=== PATIENT | female | born 1965 | race Caucasian/White ===

== ENCOUNTER 2023-10-23 22:42 | Emergency (ER) | payer MEDICARE, OTHER ==
[2023-10-24] MEDS ORDERED: KETOROLAC 15 MG/ML 1 ML VIAL IM STA (05:34)
--- NOTE | 2023-10-24 05:36 | ED ---
Extremity Problem HPI - General Chief complaint: Skin/Abscess/Foreign Body Stated complaint: Abscess on back Time Seen by Provider: 10/24/23 05:00 Source: patient, EMS, RN notes reviewed, old records reviewed Mode of arrival: EMS Limitations: altered mental status, physical limitation - History of Present Illness Initial comments: This is a 50-year-old female to the emergency department for evaluation of hip pain right-sided hip pain severe, caregiver noted some significant swelling to the right with redness surrounding. Patient has not been wanting to walk for the last few days which is something that she occasionally does. No significant recent trauma. They have noticed that the patient just hasn't wanted to get up and do her normal activities of daily living there were concerned that there may be infection in that hip. Upon looking at the hip. The emergency department caregiver states the swelling is gone significantly down and the redness is almost diminished MD Complaint: extremity pain, joint pain Location: left History of Same: Yes -: Yes arthralgia Radiation: proximal Severity scale (1-10): 10 Quality: stabbing Consistency: constant Improves with: nothing Worsens with: nothing Associated Symptoms: denies other symptoms - Related Data Allergies Allergy/AdvReac Type Severity Reaction Status Date / Time No Known Allergies Allergy Verified 10/23/23 22:57 Review of Systems ROS Statement: Those systems with pertinent positive or pertinent negative responses have been documented in the HPI. ROS Other: All systems not noted in ROS Statement are negative. Past Medical History Past Medical History: Hyperlipidemia, Hypertension History of Any Multi-Drug Resistant Organisms: None Reported Past Surgical History: Unable to Obtain Past Psychological History: Unable to Obtain Smoking Status: Never smoker Past Alcohol Use History: None Reported Past Drug Use History: None Reported General Exam Limitations: no limitations General appearance: alert, in no apparent distress Head exam: Present: atraumatic, normocephalic, normal inspection Eye exam: Present: normal appearance, PERRL, EOMI. Absent: scleral icterus, conjunctival injection, periorbital swelling ENT exam: Present: normal exam, mucous membranes moist Neck exam: Present: normal inspection. Absent: tenderness, meningismus, lymphadenopathy Respiratory exam: Present: normal lung sounds bilaterally. Absent: respiratory distress, wheezes, rales, rhonchi, stridor Cardiovascular Exam: Present: regular rate, normal rhythm, normal heart sounds. Absent: systolic murmur, diastolic murmur, rubs, gallop, clicks GI/Abdominal exam: Present: soft, normal bowel sounds. Absent: distended, tenderness, guarding, rebound, rigid Extremities exam: Present: normal inspection, full ROM, normal capillary refill. Absent: tenderness, pedal edema, joint swelling, calf tenderness Back exam: Present: normal inspection Neurological exam: Present: alert, oriented X3, CN II-XII intact Psychiatric exam: Present: normal affect, normal mood Skin exam: Present: warm, dry, intact, normal color. Absent: rash Course Vital Signs 10/23/23 10/24/23 10/24/23 22:48 06:00 07:00 Temperature 98.7 F Pulse Rate 60 98 93 Respiratory 18 14 16 Rate Blood Pressure 94/67 95/81 108/63 O2 Sat by Pulse 97 98 98 Oximetry 10/24/23 08:00 Temperature 97.8 F Pulse Rate 72 Respiratory 16 Rate Blood Pressure 104/67 O2 Sat by Pulse 96 Oximetry - Reevaluation(s) Reevaluation #1: 10/24/23 05:35 Medical records reviewed Reevaluation #2: 10/24/23 Patient is not providing any history Reevaluation #3: 10/24/23 caregiver informed of results and questions answered Reevaluation #4: 10/24/23 05:35 Was pt. sent in by a medical professional or institution ([facility], [facility], urgent care, hospital, or correction...) When possible be specific @ -no Did you speak to anyone other than the patient for history (EMS, parent, family, police, friend...)? What history was obtained from this source @ -no Did you review nursing and triage notes (agree or disagree)? Why? @ -agree Are old charts reviewed (outside hosp., previous admission, EMS record, old EKG, old radiological studies, urgent care reports/EKG's, correction records)? Report findings @ -yes Differential Diagnosis (chest pain, altered mental status, abdominal pain women, abdominal pain men, vaginal bleeding, weakness, fever, dyspnea, syncope, headache, dizziness, GI bleed, back pain, seizure, CVA, palpatations, mental health, musculoskeletal)? @ -prior EKG interpreted by me (3pts min.). @ -no X-rays interpreted by me (1pt min.). @ -yes negative for acute disease CT interpreted by me (1pt min.). @ -no U/S interpreted by me (1pt. min.). @ -no What testing was considered but not performed or refused? (CT, X-rays, U/S, labs)? Why? @ -none What meds were considered but not given or refused? Why? @ -none Did you discuss the management of the patient with other professionals (professionals i.e. DrBebeto, PA, [employer] [employer], lab, RT, psych nurse, licensed social worker, credit professional, teacher, industrial relations officer, test case developer)? Give summary @ -no Was smoking cessation discussed for >3mins.? @ -no Was critical care preformed (if so, how long)? @ -no Were there social determinants of health that impacted care today? How? (Homelessness, low income, unemployed, alcoholism, drug addiction, transportation, low edu. Level, literacy, decrease access to med. care, residential, rehab)? @ -none Was there de-escalation of care discussed even if they declined (Discuss DNR or withdrawal of care, Hospice)? DNR status @ -no What co-morbidities impacted this encounter? (DM, HTN, Smoking, COPD, CAD, Can cer, CVA, ARF, Chemo, Hep., AIDS, mental health diagnosis, sleep apnea, morbid obesity)? @ -none Was patient admitted / discharged? Hospital course, mention meds given and route, prescriptions, significant lab abnormalities, going to OR and other pertinent info. @ - 58 female to the emergency department for evaluation of right hip pain, no significant medical injury noted here in the ER, patient has no fevers no significant pain with range of motion and can be discharged home Discharge Undiagnosed new problem with uncertain prognosis? @ -no Drug Therapy requiring intensive monitoring for toxicity (Heparin, Nitro, Insulin, Cardizem)? @ -no Were any procedures done? @ -no Diagnosis/symptom? @ -Right hip pain, bursitis Acute, or Chronic, or Acute on Chronic? @ -Acute Uncomplicated (without systemic symptoms) or Complicated (systemic symptoms)? @ -Complicated Side effects of treatment? @ -no Exacerbation, Progression, or Severe Exacerbation? @ -exacerbation Poses a threat to life or bodily function? How? (Chest pain, [place], [place], pneumonia, PE, COPD, DKA, ARF, appy, cholecystitis, CVA, Diverticulitis, Homicidal, Suicidal, threat to staff... and all critical care pts) @ -no Medical Decision Making - Medical Decision Making 58 female to the emergency department for evaluation of right hip pain, no significant medical injury noted here in the ER, patient has no fevers no significant pain with range of motion and can be discharged home - Radiology Data Radiology results: report reviewed (X-ray right hip negative for traumatic injury), image reviewed Disposition Clinical Impression: Trochanteric bursitis, right hip Disposition: HOME SELF-CARE Condition: Good Instructions (If sedation given, give patient instructions): Hip Bursitis (ED) Is patient prescribed a controlled substance at d/c from ED?: No Referrals: Ketan Norton DO [Primary Care Provider] - 1-2 days
--- NOTE | 2023-10-24 07:20 | XR ---
EXAMINATION TYPE: XR Hip RT and AP Pelvis DATE OF EXAM: 10/24/2023 5:47 AM CLINICAL INDICATION:Female, 58 years old with history of pain; [facility] COMPARISON: None. TECHNIQUE: XR Hip RT and AP Pelvis; hip was examined in the frontal and lateral projections and a AP pelvis. FINDINGS: No evidence for acute process, joint dislocation or significant soft tissue swelling. Osteo phyte formation of the superior acetabulum of the hips. Large amount stool is seen in the rectum. IMPRESSION: 1. No evidence for acute process. 2. Mild hip osteoarthrosis bilaterally. 3. Large amount stool in the rectum.
[2023-10-24 07:40] VITALS: RESP 16
[2023-10-24 08:05] VITALS: BP 104/67; PULSE 72; TEMP 97.8
== END 2023-10-24 08:03 | disposition home or self-care (01) ==
LOC: EC 22:42 → SUPCPDRO 22:42 → EC 10-24 08:03
DX: M70.61 Trochanteric bursitis, right hip (principal); I10 Essential (primary) hypertension
CPT/HCPCS: 73502; 99283

== ENCOUNTER 2025-01-30 22:43 | Emergency (ER) | payer MEDICARE, OTHER ==
[2025-01-30 23:43] VITALS: TEMP 97.9
--- NOTE | 2025-01-31 00:01 | ED ---
Fall HPI - General Chief Complaint: Fall Stated Complaint: Fall, Head Injury Time Seen by Provider: 01/30/25 23:45 Source: patient, EMS, Caregiver Mode of arrival: EMS - History of Present Illness Initial Comments: 60-year-old female with cognitive delay presenting to the emergency department via EMS from alf for complaint of a fall. Majority of history was provided from caregiver at bedside due to patient's cognitive delay. Is reported that patient was in bed where she fell out of bed was found by a caregiver. Patient was unattended for less than 10 minutes total. There was no reported loss Of the Fall However Was Concerned That There Is a Bleed from the Back of the Patient's Head. Currently Patient States That She Is Feeling Well and Denies Headache, Blurry Double Vision, Dizziness, Lightheadedness, Chest Pain, Difficulty Breathing. Patient Denies Losing Consciousness at the Time of the Fall. States That She Rolled Out Of Bed. - Related Data Allergies Allergy/AdvReac Type Severity Reaction Status Date / Time No Known Allergies Allergy Verified 01/30/25 23:43 Review of Systems ROS Statement: Those systems with pertinent positive or pertinent negative responses have been documented in the HPI. ROS Other: All systems not noted in ROS Statement are negative. Past Medical History Past Medical History: Hyperlipidemia, Hypertension History of Any Multi-Drug Resistant Organisms: None Reported Past Surgical History: Unable to Obtain Past Psychological History: Unable to Obtain Smoking Status: Never smoker Past Alcohol Use History: None Reported Past Drug Use History: None Reported General Exam General appearance: alert, in no apparent distress Head exam: Present: other (right posterior scalp skin abrasion, 3 mm, no active bleeding) Neck exam: Present: normal inspection. Absent: tenderness, meningismus, lymphadenopathy Respiratory exam: Present: normal lung sounds bilaterally. Absent: respiratory distress, wheezes, rales, rhonchi, stridor Cardiovascular Exam: Present: regular rate, normal rhythm, normal heart sounds. Absent: systolic murmur, diastolic murmur, rubs, gallop, clicks GI/Abdominal exam: Present: soft, normal bowel sounds. Absent: distended, tenderness, guarding, rebound, rigid Extremities exam: Present: normal inspection, full ROM, normal capillary refill. Absent: tenderness, pedal edema, joint swelling, calf tenderness Neurological exam: Present: alert, oriented X3, CN II-XII intact Course Vital Signs 01/30/25 01/31/25 01/31/25 23:29 01:54 01:57 Temperature 97.9 F 97.9 F Pulse Rate 82 86 81 Respiratory 20 16 Rate Blood Pressure 107/74 90/65 O2 Sat by Pulse 97 95 95 Oximetry Medical Decision Making - Medical Decision Making Was pt. sent in by a medical professional or institution (, PA, [facility], urgent care, hospital, or residential...) When possible be specific @ -No Did you speak to anyone other than the patient for history (EMS, parent, family, police, friend...)? What history was obtained from this source @ -Spoke to caregiver at bedside states the patient was unattended for less than 15 minutes after she had a fall out of bed. Did you review nursing and triage notes (agree or disagree)? Why? @ -I reviewed and agree with nursing and triage notes Were old charts reviewed (outside hosp., previous admission, EMS record, old EKG, old radiological studies, urgent care reports/EKG's, residential records)? Report findings @ -No old charts were reviewed Differential Diagnosis (chest pain, altered mental status, abdominal pain women, abdominal pain men, vaginal bleeding, weakness, fever, dyspnea, syncope, headache, dizziness, GI bleed, back pain, seizure, CVA, palpatations, mental health, musculoskeletal)? @ -Skin avulsion, laceration, intracranial hemorrhage, cervical spine fracture, this is not all inclusive list EKG interpreted by me (3pts min.). @ -None X-rays interpreted by me (1pt min.). @ -None done CT interpreted by me (1pt min.). @ -CT of the brain and C-spine without contrast no acute intracranial or cervical spine process U/S interpreted by me (1pt. min.). @ -None done What testing was considered but not performed or refused? (CT, X-rays, U/S, labs)? Why? @ -None What meds were considered but not given or refused? Why? @ -None Did you discuss the management of the patient with other professionals (professionals i.e. , PA, TUBE PUSHER, lab, RT, psych nurse, medical social worker, online marketing director, teacher, business development officer, block and case maker)? Give summary @ -No Was smoking cessation discussed for >3mins.? @ -No Was critical care preformed (if so, how long)? @ -No Were there social determinants of health that impacted care today? How? (Homelessness, low income, unemployed, alcoholism, drug addiction, transportat ion, low edu. Level, literacy, decrease access to med. care, [facility], rehab)? @ -No Was there de-escalation of care discussed even if they declined (Discuss DNR or withdrawal of care, Hospice)? DNR status @ -No What co-morbidities impacted this encounter? (DM, HTN, Smoking, COPD, CAD, Cancer, CVA, ARF, Chemo, Hep., AIDS, mental health diagnosis, sleep apnea, morbid obesity)? @ -None Was patient admitted / discharged? Hospital course, mention meds given and route, prescriptions, significant lab abnormalities, going to OR and other pertinent info. @ -Discharge. 60-year-old female presenting via EMS for complaint of a fall. Noted to have a mild posterior right scalp laceration measuring approximately 3 mm with no signs of active bleeding. This laceration is not deep enough to require natty or repair. Is cleansed with sterile water. Patient arrived with c-collar in place and underwent CT of the brain C-spine that was unremarkable. Patient is discharged in stable condition. Case discussed with Dr. Hutson Undiagnosed new problem with uncertain prognosis? @ -No Drug Therapy requiring intensive monitoring for toxicity (Heparin, Nitro, Insulin, Cardizem)? @ -No Were any procedures done? @ -No Diagnosis/symptom? @ -Fall, posterior scalp laceration Acute, or Chronic, or Acute on Chronic? @ -Acute Uncomplicated (without systemic symptoms) or Complicated (systemic symptoms)? @ -Uncomplicated Side effects of treatment? @ -No Exacerbation, Progression, or Severe Exacerbation? @ -No Poses a threat to life or bodily function? How? (Chest pain, [place], [place], pneumonia, PE, COPD, DKA, ARF, appy, cholecystitis, CVA, Diverticulitis, Homicidal, Suicidal, threat to staff... and all critical care pts) @ -No Disposition Clinical Impression: Fall Disposition: HOME SELF-CARE Condition: Good Instructions (If sedation given, give patient instructions): Fall Prevention (ED) Additional Instructions: return to the emergency department for any new or worsening symptoms. Is patient prescribed a controlled substance at d/c from ED?: No Referrals: Ketan Norton DO [Primary Care Provider] - 1-2 days Time of Disposition: 00:41
--- NOTE | 2025-01-31 00:26 | CT ---
EXAM: CT Head Without Intravenous Contrast CLINICAL HISTORY: ITS.REASON CT Reason: fall TECHNIQUE: Axial computed tomography images of the head/brain without intravenous contrast. CTDI is 47.1 mGy and DLP is 1134 mGy-cm. This CT exam was performed using one or more of the following dose reduction techniques: automated exposure control, adjustment of the mA and/or kV according to patient size, and/or use of iterative reconstruction technique. COMPARISON: No relevant prior studies available. FINDINGS: Brain: Age-related cerebral volume loss. Periventricular and subcortical white matter hypoattenuation, consistent with chronic microangiopathy. No acute intracranial hemorrhage. No midline shift or mass effect. Ventricles: Unremarkable. No ventriculomegaly. Bones/joints: Unremarkable. No acute fracture. Soft tissues: Unremarkable. Sinuses: Unremarkable as visualized. No acute sinusitis. Mastoid air cells: Unremarkable as visualized. No mastoid effusion. IMPRESSION: No acute intracranial hemorrhage. No midline shift or mass effect. EXAM: CT Cervical Spine Without Intravenous Contrast CLINICAL HISTORY: ITS.REASON CT Reason: fall TECHNIQUE: Axial computed tomography images of the cervical spine without intravenous contrast. CTDI is 7.3 mGy and DLP is 241.2 mGy-cm. This CT exam was performed using one or more of the following dose reduction techniques: automated exposure control, adjustment of the mA and/or kV according to patient size, and/or use of iterative reconstruction technique. COMPARISON: No relevant prior studies available. FINDINGS: The vertebral body heights are maintained. The craniocervical junction is intact. The atlanto-dens interval is maintained. The dens is intact. There is no spondylolisthesis. Multilevel cervical spondylosis and degenerative disc disease. Straightening of the cervical lordosis. The unenhanced neck soft tissues are grossly unremarkable. The visualized lung apices are grossly clear. IMPRESSION: No acute fracture or subluxation of the cervical spine.
[2025-01-31 02:00] VITALS: PULSE 81
[2025-01-31 02:40] VITALS: BP 90/65; RESP 16
== END 2025-01-31 02:39 | disposition home or self-care (01) ==
LOC: EEVIPCON 22:43 → EC 22:43
DX: S01.01XA Laceration without foreign body of scalp, initial encounter (principal); W06.XXXA Fall from bed, initial encounter
CPT/HCPCS: 70450; 72125; 99283